=== PATIENT | female | born 1990 | race Caucasian/White ===

== ENCOUNTER 2018-07-03 16:09 | Emergency (ER) | payer MEDICAID, MEDICARE ==
[2018-07-03 16:09] VITALS: BMI 28.3
[2018-07-03 16:41] VITALS: BP 148/85; PULSE 99; RESP 16; TEMP 98.4; O2SAT 100
--- NOTE | 2018-07-03 17:43 | ED PDOC ---
HPI: General Adult Time Seen by Provider: 07/03/18 16:40 Chief Complaint (Nursing): Lower Extremity Problem/Injury Chief Complaint (Provider): Back pain and left knee pain History Per: Patient History/Exam Limitations: no limitations Onset/Duration Of Symptoms: Days Current Symptoms Are (Timing): Still Present Additional Complaint(s): 27 year old female presents to the ED for an evaluation of lower back pain and left knee pain. 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 Since then, patient reports of mild low back and knee pain but she has been ambulatory. She also has a history of left knee injury requiring ligament reconstructive surgery from Dr. Rendon located in [place], [place]. Otherwise, she denies weakness, numbness, head injury or any other complaints. Past Medical History Reviewed: Historical Data, Nursing Documentation, Vital Signs Vital Signs: Last Vital Signs Temp 98.4 F 07/03/18 16:36 Pulse 99 H 07/03/18 16:36 Resp 16 07/03/18 16:36 BP 148/85 07/03/18 16:36 Pulse Ox 100 07/03/18 16:36 - Medical History PMH: Anemia, Bipolar Disorder, Depression, Migraine, Post Traumatic Stress Disorder Denies: Diabetes, Hepatitis, HIV, HTN, Chronic Kidney Disease, Seizures, Sexually Transmitted Disease - Family History Family History: States: Unknown Family Hx - Immunization History Hx Tetanus Toxoid Vaccination: No Hx Influenza Vaccination: No Hx Pneumococcal Vaccination: No - Home Medications Home Medications: Ambulatory Orders Medication Instructions Recorded Amoxicillin 500 mg PO BID #20 tablet 12/22/17 Ondansetron [Zofran] 4 mg PO Q8H PRN #9 tab 12/22/17 Cyclobenzaprine [Cyclobenzaprine 10 mg PO BID #10 tab 07/03/18 HCl] Ibuprofen [Motrin Tab] 600 mg PO TID #15 tab 07/03/18 - Allergies Allergies/Adverse Reactions: Allergies Allergy/AdvReac Type Severity Reaction Status Date / Time peanut Allergy ANAPHYLAXIS Verified 07/03/18 16:36 Review of Systems ROS Statement: Except As Marked, All Systems Reviewed And Found Negative Constitutional: Negative for: Fever Musculoskeletal: Positive for: Back Pain, Other (left knee pain ) Skin: Negative for: Rash Neurological: Negative for: Weakness, Numbness Physical Exam - Reviewed Nursing Documentation Reviewed: Yes Vital Signs Reviewed: Yes - Physical Exam Appears: Positive for: Well, Non-toxic, No Acute Distress Head Exam: Positive for: ATRAUMATIC, NORMAL INSPECTION, NORMOCEPHALIC Skin: Positive for: Normal Color, Warm, Dry. Negative for: Rash Eye Exam: Positive for: Normal appearance Pulses-Dorsalis Pedis (L): 2+ Pulses-Dorsalis Pedis (R): 2+ Back: Positive for: Other (mild paralumbar tenderness) Extremity: Positive for: Normal ROM (full ), Tenderness (mild tenderness over left knee; no ecchymosis). Negative for: Deformity Neurological/Psych: Positive for: Awake, Alert, Normal Tone, Oriented (x3) - Laboratory Results Urine POC: Negative - ECG O2 Sat by Pulse Oximetry: 100 (RA) Pulse Ox Interpretation: Normal - Progress ED Course And Treament: Discussed with patient given she had a fall and lower back pain, recommended lumbar xray and knee xray. Patient states she does not have insurance right now or any funds. She is concerned about the cost and is declining the xrays. Patient advised to rest, ice and elevate her leg and given prescription for Cyclobenzaprine 10mg and Motrin 600mg. Return to ED if symptoms worsen and provided referral to orthopedics Medical Decision Making Medical Decision Making: Upon provider evaluation patient is medically stable, and requires no further treatment in the ED at this time. Patient will be discharged. Counseling was provided and all questions were answered regarding diagnosis and need for follow up with PMD. There is agreement to discharge plan. Return if symptoms persist or worsen. Scribe Attestation: Documented by Paola Mccormack, acting as a scribe for Erin Velez PA-C. Provider Scribe Attestation: All medical record entries made by the Scribe were at my direction and personally dictated by me. I have reviewed the chart and agree that the record accurately reflects my personal performance of the history, physical exam, medical decision making, and the department course for this patient. I have also personally directed, reviewed, and agree with the discharge instructions and disposition. Disposition - Clinical Impression Clinical Impression: Left knee pain, Low back pain, Knee injury, Back pain - Disposition Referrals: Freddie Lomas III, MD [Staff Provider] - Disposition Time: 17:50 Condition: STABLE Prescriptions: Cyclobenzaprine [Cyclobenzaprine HCl] 10 mg PO BID #10 tab Ibuprofen [Motrin Tab] 600 mg PO TID #15 tab Instructions: Low Back Pain (DC), Knee Sprain (DC) Forms: [employer] ([place]e)
== END 2018-07-03 17:34 | disposition home or self-care (01) ==
LOC: H.ER 16:09
DX: M25.562 Pain in left knee (principal); M54.5 Low back pain; S89.92XA Unspecified injury of left lower leg, initial encounter; Z86.59 Personal history of other mental and behavioral disorders; F43.10 Post-traumatic stress disorder, unspecified

== ENCOUNTER 2018-07-17 00:01 | Observation (INO) | payer MEDICAID ==
[2018-07-17 00:01] VITALS: BMI 28.3
[2018-07-17] MEDS ORDERED: Sodium Chloride 0.9% 1,000 ML IV STA (00:33)
--- NOTE | 2018-07-17 00:40 | ED PDOC ---
HPI: Seizure Time Seen by Provider: 07/17/18 00:05 Chief Complaint (Nursing): Seizure Chief Complaint (Provider): Seizure History Per: Other (friend) Recent Seizure Activity Began: Just Before Arrival Number Of Seizures: One Length Of Seizures (Duration): Minutes (1) Quality Of Seizure: Generalized Associated Symptoms: denies: Bit Tongue, Incontinence Of Urine, Incontinence Of Stool, Injury As A Result Of Seizure Activity Post-ictal Period: Yes Additional Complaint(s): 27yo female, with history of depression, brought to ER by EMS for evaluation s/p seizure. Patient accompanied by friend who states they were at the patient's home and talking when the patient suddenly had generalized seizure lasting approximately 1 minute. Per friend, the patient had a post-ictal period lasting until arrival to the ER. Otherwise, no falls or head injury, tongue bite, bowel/bladder incontinence. Patient states she has no diagnosed history of seizures and states this is her first instance. Patient also states she only drinks socially, on the weekends and thinks her last drink might have been 24 hours ago. Per friend, they were together 2 days ago and the patient was "sipping on a nadira." Past Medical History Reviewed: Historical Data, Nursing Documentation, Vital Signs Vital Signs: Last Vital Signs Temp 97.6 F 07/17/18 00:04 Pulse 113 H 07/17/18 00:04 Resp 18 07/17/18 00:04 BP 147/88 07/17/18 00:04 Pulse Ox 99 07/17/18 00:04 Primary Care Provider: Darlene Nassar P - Medical History PMH: Anemia, Bipolar Disorder, Depression, Migraine, Post Traumatic Stress Disorder Denies: Diabetes, Hepatitis, HIV, HTN, Chronic Kidney Disease, Seizures, Sexually Transmitted Disease - Surgical History Surgical History: No Surg Hx - Family History Family History: States: No Known Family Hx, Unknown Family Hx - Social History Current smoker - smoking cessation education provided: No Alcohol: Social (on weekends) Drugs: Denies - Immunization History Hx Tetanus Toxoid Vaccination: No Hx Influenza Vaccination: No Hx Pneumococcal Vaccination: No - Home Medications Home Medications: Ambulatory Orders Medication Instructions Recorded Amoxicillin 500 mg PO BID #20 tablet 12/22/17 Ondansetron [Zofran] 4 mg PO Q8H PRN #9 tab 12/22/17 Cyclobenzaprine [Cyclobenzaprine 10 mg PO BID #10 tab 07/03/18 HCl] Ibuprofen [Motrin Tab] 600 mg PO TID #15 tab 07/03/18 - Allergies Allergies/Adverse Reactions: Allergies Allergy/AdvReac Type Severity Reaction Status Date / Time peanut Allergy ANAPHYLAXIS Verified 07/03/18 16:36 Review of Systems ROS Statement: Except As Marked, All Systems Reviewed And Found Negative ENT: Negative for: Other (tongue bite) Genitourinary Female: Negative for: Incontinence Neurological: Positive for: Seizures Physical Exam - Reviewed Nursing Documentation Reviewed: Yes Vital Signs Reviewed: Yes - Physical Exam Appears: Positive for: Non-toxic Head Exam: Positive for: ATRAUMATIC, NORMAL INSPECTION, NORMOCEPHALIC Skin: Positive for: Normal Color Eye Exam: Positive for: Normal appearance, EOMI, PERRL. Negative for: Nystagmus ENT: Positive for: Normal ENT Inspection. Negative for: Pharyngeal Erythema Neck: Positive for: Normal, Supple Cardiovascular/Chest: Positive for: Regular Rate, Rhythm Respiratory: Positive for: Normal Breath Sounds. Negative for: Respiratory Distress Gastrointestinal/Abdominal: Positive for: Normal Exam, Soft Back: Positive for: Normal Inspection Extremity: Positive for: Normal ROM Neurological/Psych: Positive for: Awake, Normal Tone, Symmetric/Intact Strength (5/5 strength of all extremities), Oriented (x 3), Gait (stable), Cerebellar Tests (normal), printing supervisor II-XII (intact), Other (slow to respond). Negative for: Motor/Sensory Deficits, Facial Droop - Laboratory Results Result Diagrams: 07/17/18 00:50 07/17/18 00:50 - ECG ECG: Positive for: Interpreted By Me, Viewed By Me ECG Rhythm: Positive for: Sinus Rhythm Rate: 96 O2 Sat by Pulse Oximetry: 99 (RA) Pulse Ox Interpretation: Normal Medical Decision Making Medical Decision Making: Impression: Seizure, alcohol withdrawal vs. new onset seizure Plan: -- Labs -- EKG -- CT Head w/o contrast -- IV Fluids 0315 CT Head Findings: Normal size of the ventricles and extra-axial spaces for the patient's age. Normal white matter tracts of the supratentorial brain. Normal basal ganglia and thalami. Normal brainstem. Normal cerebellum. There is no demonstrated extra-axial, intraparenchymal, or intraventricular hemorrhage. There are no findings of an acute ischemic infarction. Normal calvarium. There is no demonstrated fracture. Normal soft tissue structures. Normal visualized paranasal sinuses. IMPRESSION: Normal unenhanced CT scan of the brain. Labs reviewed, patient with mildly elevated sugars Patient with decrease in pulse as well 0331 Patient to be admitted to [facility] due to new onset seizure Discussed with hospitalist, Dr. Meier, who accepts patient. Plan of admission discussed wtih patient, who is agreeable. pt currently awake and aler tin no distress. Care transferred to Dr. Meier at this time. Scribe Attestation: Documented by Helene Booker, acting as a scribe for Zeyad Rivera MD. Provider Scribe Attestation: All medical record entries made by the Scribe were at my direction and personally dictated by me. I have reviewed the chart and agree that the record accurately reflects my personal performance of the history, physical exam, medical decision making, and the department course for this patient. I have also personally directed, reviewed, and agree with the discharge instructions and disposition. Disposition - Clinical Impression Clinical Impression: Witnessed seizure - Patient ED Disposition Is Patient to be Admitted: Yes Counseled Patient/Family Regarding: Studies Performed, Diagnosis - Disposition Disposition Time: 03:00 Condition: STABLE
[2018-07-17 01:00] LABS: BASO % 0.7 % (0.0-2.0); EOS # 0.1 K/uL (0.0-0.7); EOS % 0.8 % (0.0-4.0); LYMPH # 1.2 K/uL (1.0-4.3); LYMPH % 19.7 % (20.0-40.0); MEAN CELL VOLUME 83.7 fl (81.0-99.0); MEAN CORPUSCULAR HEMOGLOBIN 26.7 pg (27.0-31.0); MEAN PLATELET VOLUME 9.6 fl (7.2-11.7); MONO # 0.5 K/uL (0.0-0.8); MONO % 7.8 % (0.0-10.0); NEUT # 4.4 K/uL (1.8-7.0); RBC 4.48 Mil/uL (3.80-5.20); RED CELL DISTRIBUTION WIDTH 14.6 % (11.5-14.5); WHITE BLOOD COUNT 6.2 K/uL (4.8-10.8)
[2018-07-17 01:10] LABS: ALB/GLOB RATIO 1.2 (1.0-2.1); ALBUMIN 4.2 g/dL (3.5-5.0); ALT/SGPT 16 U/L (9-52); AST/SGOT 32 U/L (14-36); BLOOD UREA NITROGEN 14 mg/dl (7-17); CALCIUM 8.6 mg/dL (8.4-10.2); GFR NON-AFRICAN AMERICAN > 60
--- NOTE | 2018-07-17 04:29 | CP.PCM.HP ---
<RuddyMary - Last Filed: 07/17/18 04:35> History of Present Illness - History of Present Illness History of Present Illness: 27 yo female with history of depression was brought via EMS to the ED because of a witnessed seizure. Patient is accompanied by her best friend who is providing most of the history. Friend reports that patient was sitting on the bed and talking with her when all of a sudden she witnessed the patient start shaking (described as generalized body shaking and tensing up). She states that patient had this episode for about a minute and then was very sleepy afterwards. When the seizure occurred the friend called EMS and she states that patient woke up from her post-ictal state when they were brought into the ED. Denies falls, head injury, bowel or bladder incontinence or tongue biting. The patient reports she does not remember anything except for waking up on the stretcher in the ambulance. She reports last alcoholic drink was yesterday- a can of nadira. Patient denies chest pain, headaches, changes in vision, one sided weakness or tingling, dysuria, frequency or urgency. She admits that she lost her mother recently and has been very sad and not sleeping lately. Denies SI/HI. ROS: Negative except for stated above in HPI PMD: None Medical history: Depression Family history: mother with DM Allergies: Peanut butter- throat and tongue swelling Surgery: Gastric sleeve in 2013. Left meniscus repair in 2008. Social: Reports drinking on weekends- yesterday she drank 4 cans of margaritas and states she typically drinks that much on weekends. Darryn smoking history or illicit drug use. ED: Hemodynamically stable -- Labs- CBC, CMP -- EKG -- CT Head w/o contrast: -- IV Fluids Present on Admission - Present on Admission Any Indicators Present on Admission: No History of DVT/PE: No History of Uncontrolled Diabetes: No Urinary Catheter: No Decubitus Ulcer Present: No Review of Systems - EENT Eyes: As Per HPI - Cardiovascular Cardiovascular: As Per HPI - Respiratory Respiratory: As Per HPI - Gastrointestinal Gastrointestinal: As Per HPI - Genitourinary Genitourinary: As Per HPI - Neurological Neurological: absent: Dizziness, Sensory Deficit, Tingling, Tremor, Vertigo - Psychiatric Psychiatric: Depression Past Patient History - Infectious Disease Hx of Infectious Diseases: None - Past Medical History & Family History Past Medical History?: No - Past Social History Alcohol: Social (on weekends) Drugs: Denies - CARDIAC Hx Hypertension: No - PULMONARY Hx Tuberculosis: No - NEUROLOGICAL Hx Migraine: Yes Hx Seizures: No - HEENT Other/Comment: wears glasses - RENAL Hx Chronic Kidney Disease: No - ENDOCRINE/METABOLIC Hx Endocrine Disorders: No - HEMATOLOGICAL/ONCOLOGICAL Hx Anemia: Yes Hx Human Immunodeficiency Virus (HIV): No - INTEGUMENTARY Hx Dermatological Problems: No - MUSCULOSKELETAL/RHEUMATOLOGICAL Other/Comment: chronic left knee pain.multiple L knee surgeries - GASTROINTESTINAL Hx Gastrointestinal Disorders: No - GENITOURINARY/GYNECOLOGICAL Hx Sexually Transmitted Disorders: No - PSYCHIATRIC Hx Bipolar Disorder: Yes Hx Depression: Yes Hx Post Traumatic Stress Disorder: Yes - SURGICAL HISTORY Hx Surgeries: Yes Hx Gastric Bypass Surgery: Yes (gastric sleeve) Other/Comment: left knee surgery (ACL repair) - ANESTHESIA Hx Anesthesia: Yes Hx Anesthesia Reactions: No Meds Allergies/Adverse Reactions: Allergies Allergy/AdvReac Type Severity Reaction Status Date / Time peanut Allergy ANAPHYLAXIS Verified 07/03/18 16:36 Physical Exam - Constitutional Appears: No Acute Distress, Unkempt, Older Than Stated Age, Confused - Head Exam Head Exam: NORMAL INSPECTION - Eye Exam Eye Exam: Normal appearance, PERRL Pupil Exam: NORMAL ACCOMODATION - ENT Exam ENT Exam: Mucous Membranes Moist - Respiratory Exam Respiratory Exam: Clear to Auscultation Bilateral, NORMAL BREATHING PATTERN. absent: Accessory Muscle Use, Chest Wall Tenderness, Decreased Breath Sounds, Prolonged Expiratory Phase, Rales, Rhonchi, Wheezes, Respiratory Distress, Stridor - Cardiovascular Exam Cardiovascular Exam: Tachycardia, +S1, +S2 - GI/Abdominal Exam GI & Abdominal Exam: Normal Bowel Sounds, Soft. absent: Distended, Firm, Guarding, Rebound, Rigid, Tenderness - Extremities Exam Extremities exam: Positive for: normal capillary refill, normal inspection, pedal pulses present. Negative for: calf tenderness, pedal edema, tenderness Additional comments: healed lacerations on bilateral forearms - Back Exam Back exam: NORMAL INSPECTION - Neurological Exam Additional comments: Sleepy. Alert and oriented to herself and place. Not to time. 5/5 strength in all extremities. Sensation intact in all extremities. - Psychiatric Exam Psychiatric exam: Depressed (Feels sad from the loss of her mother; Denies S I/HI), Normal Affect - Skin Skin Exam: Dry, Intact, Normal Color, Warm Results - Vital Signs Recent Vital Signs: Last Vital Signs Temp 97.6 F 07/17/18 00:04 Pulse 96 H 07/17/18 03:38 Resp 18 07/17/18 00:04 BP 147/88 07/17/18 00:04 Pulse Ox 99 07/17/18 03:38 - Labs Result Diagrams: 07/17/18 00:50 07/17/18 00:50 Labs: Laboratory Results - last 24 hr 07/17/18 07/17/18 07/17/18 00:27 00:50 00:50 WBC 6.2 RBC 4.48 Hgb 12.0 Hct 37.5 MCV 83.7 D MCH 26.7 L MCHC 32.0 L RDW 14.6 H Plt Count 249 MPV 9.6 Neut % (Auto) 71.0 Lymph % (Auto) 19.7 L Kane % (Auto) 7.8 Eos % (Auto) 0.8 Baso % (Auto) 0.7 Neut # (Auto) 4.4 Lymph # (Auto) 1.2 Kane # (Auto) 0.5 Eos # (Auto) 0.1 Baso # (Auto) 0.0 Sodium 137 Potassium 3.6 Chloride 100 Carbon Dioxide 25 Anion Gap 16 BUN 14 Creatinine 0.7 Est GFR ( Amer) > 60 Est GFR (Non-Af Amer) > 60 POC Glucose (mg/dL) 161 H Random Glucose 162 H Calcium 8.6 Total Bilirubin 0.4 AST 32 ALT 16 Alkaline Phosphatase 66 Total Protein 7.7 Albumin 4.2 Globulin 3.4 Albumin/Globulin Ratio 1.2 Assessment & Plan (1) Witnessed seizure Status: Acute - Assessment and Plan (Free Text) Assessment: 27 yo female with no pertinent medical history was brought to the ED via EMS because of witness seizure admitted for observation given new onset seizure. Plan: 1. New onset seizure - Admit to telemetry - Electrolytes normal - Hemodynamically stable - Neuro consult appreciated - CT Head Findings: Normal unenhanced CT scan of the brain. - Ativan 2mg prn for breakthrough seizures. - NPO at this time - IVF @ maintenance - F/U Drug screen and alcohol in serum 2. DVT prophylaxis - SCD - early ambulation 3. Full code <Thad Meier - Last Filed: 07/17/18 06:46> Results - Vital Signs Recent Vital Signs: Last Vital Signs Temp 98.0 F 07/17/18 06:22 Pulse 94 H 07/17/18 06:22 Resp 18 07/17/18 06:22 BP 135/81 07/17/18 06:22 Pulse Ox 100 07/17/18 06:20 - Labs Result Diagrams: 07/17/18 00:50 07/17/18 00:50 Labs: Laboratory Results - last 24 hr 07/17/18 07/17/18 07/17/18 00:27 00:50 00:50 WBC 6.2 RBC 4.48 Hgb 12.0 Hct 37.5 MCV 83.7 D MCH 26.7 L MCHC 32.0 L RDW 14.6 H Plt Count 249 MPV 9.6 Neut % (Auto) 71.0 Lymph % (Auto) 19.7 L Kane % (Auto) 7.8 Eos % (Auto) 0.8 Baso % (Auto) 0.7 Neut # (Auto) 4.4 Lymph # (Auto) 1.2 Kane # (Auto) 0.5 Eos # (Auto) 0.1 Baso # (Auto) 0.0 Sodium 137 Potassium 3.6 Chloride 100 Carbon Dioxide 25 Anion Gap 16 BUN 14 Creatinine 0.7 Est GFR ( Amer) > 60 Est GFR (Non-Af Amer) > 60 POC Glucose (mg/dL) 161 H Random Glucose 162 H Calcium 8.6 Total Bilirubin 0.4 AST 32 ALT 16 Alkaline Phosphatase 66 Total Protein 7.7 Albumin 4.2 Globulin 3.4 Albumin/Globulin Ratio 1.2 Alcohol, Quantitative 07/17/18 05:59 WBC RBC Hgb Hct MCV MCH MCHC RDW Plt Count MPV Neut % (Auto) Lymph % (Auto) Kane % (Auto) Eos % (Auto) Baso % (Auto) Neut # (Auto) Lymph # (Auto) Kane # (Auto) Eos # (Auto) Baso # (Auto) Sodium Potassium Chloride Carbon Dioxide Anion Gap BUN Creatinine Est GFR ( Amer) Est GFR (Non-Af Amer) POC Glucose (mg/dL) Random Glucose Calcium Total Bilirubin AST ALT Alkaline Phosphatase Total Protein Albumin Globulin Albumin/Globulin Ratio Alcohol, Quantitative < 10 Assessment & Plan - Assessment and Plan (Free Text) Plan: History as documented by resident was reviewed with patient and resident. I performed the harris elements of exam and agree with the above findings. Diagnostics were reviewed and medical decision making and plan of care performed by me. 27 yo AAF with no significant PMH except for Depression (lost her mother recently) p/w episode of GTC seizure witnessed by her friend. It lasted about a min following which patient was confused. No urinary or bowel incontinence or tongue bite. Never had similar episode in the past. On exam neurologically intact but somewhat slow. Lungs clear b/l. Blood work unremarkable and CT head negative. Will observe under tele monitoring with seizure precautions, neurology consult.
[2018-07-17 08:09] VITALS: RESP 18
--- NOTE | 2018-07-17 11:12 | CP.PCM.CON ---
History of Present Illness - History of Present Illness History of Present Illness: Psychiatry consult note CC: "My mom ." HPI: 27 yo female w/ h/o bipolar disorder, admitted for seizure, reports h/o chronic depression, and reports that she is currently grieving the loss of her mother. She reports that she has had passive wishes that she were not alive, but denies active suicidal ideation/plan/intent. She is able to contract for safety. She reports that she has not taken her Seroquel for 1 month because she lost her insurance and can not afford the medication. She denies acute AH/VH/SI/HI. She does not want acute psychiatric admission and states that she wants to continue living for herself and her family. 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 A + O x 4. PPHx: H/o Bipolar Disorder, not compliant with Seroquel due to loss of insurance. History of >5 past psychiatric admission; h/o suicide attempt by OD 1 year ago. PMed/Surg Hx: h/o Gastric sleeve in 2013 and Left meniscus repair ALL: Peanuts FHx: mother w/ h/o depression SHx: Lives w/ brother; drinks etoh intermittently; denies drug/cig use MSE: A + O x 4, calm, cooperative, no acute distress, mood- depressed, affect- full range/broad; thought process- linear/coherent, thought content- no delusions, no AH//SI/HI; good I/J Impression: 27 yo old female w/ h/o bipolar disorder, currently grieving the loss of her mother. She is able to contract for safety and family confirmed that she is not an acute danger to self. Patient does not want psychiatric admission at this time. -Start Seroquel 100 mg PO HS -Patient is psychiatrically clear for discharge -No 1:1 indicated -Recommend outpatient referral to the [place] psychiatric clinic Past Patient History - Infectious Disease Hx of Infectious Diseases: None - Past Medical History & Family History Past Medical History?: No - Past Social History Alcohol: Social (on weekends) Drugs: Denies - CARDIAC Hx Hypertension: No - PULMONARY Hx Tuberculosis: No - NEUROLOGICAL Hx Migraine: Yes Hx Seizures: No - HEENT Other/Comment: wears glasses - RENAL Hx Chronic Kidney Disease: No - ENDOCRINE/METABOLIC Hx Endocrine Disorders: No - HEMATOLOGICAL/ONCOLOGICAL Hx Anemia: Yes Hx Human Immunodeficiency Virus (HIV): No - INTEGUMENTARY Hx Dermatological Problems: No - MUSCULOSKELETAL/RHEUMATOLOGICAL Other/Comment: chronic left knee pain.multiple L knee surgeries - GASTROINTESTINAL Hx Gastrointestinal Disorders: No - GENITOURINARY/GYNECOLOGICAL Hx Sexually Transmitted Disorders: No - PSYCHIATRIC Hx Bipolar Disorder: Yes Hx Depression: Yes Hx Post Traumatic Stress Disorder: Yes - SURGICAL HISTORY Hx Surgeries: Yes Hx Gastric Bypass Surgery: Yes (gastric sleeve) Other/Comment: left knee surgery (ACL repair) - ANESTHESIA Hx Anesthesia: Yes Hx Anesthesia Reactions: No Meds Allergies/Adverse Reactions: Allergies Allergy/AdvReac Type Severity Reaction Status Date / Time peanut Allergy ANAPHYLAXIS Verified 07/03/18 16:36 - Medications Medications: Current Medications Sodium Chloride (Sodium Chloride 0.9%) 1,000 mls @ 100 mls/hr IV .Q10H KANE Lorazepam (Ativan) 2 mg IVP Q6 PRN PRN Reason: Seizure activity Results - Vital Signs Recent Vital Signs: Last Vital Signs Temp 97.5 F L 07/17/18 08:08 Pulse 83 07/17/18 08:08 Resp 18 07/17/18 08:08 BP 126/87 07/17/18 08:08 Pulse Ox 100 07/17/18 08:08 - Labs Result Diagrams: 07/17/18 00:50 07/17/18 00:50 Labs: Laboratory Results - last 24 hr 07/17/18 07/17/18 07/17/18 00:27 00:50 00:50 WBC 6.2 RBC 4.48 Hgb 12.0 Hct 37.5 MCV 83.7 D MCH 26.7 L MCHC 32.0 L RDW 14.6 H Plt Count 249 MPV 9.6 Neut % (Auto) 71.0 Lymph % (Auto) 19.7 L [place] % (Auto) 7.8 Eos % (Auto) 0.8 Baso % (Auto) 0.7 Neut # (Auto) 4.4 Lymph # (Auto) 1.2 [place] # (Auto) 0.5 Eos # (Auto) 0.1 Baso # (Auto) 0.0 Sodium 137 Potassium 3.6 Chloride 100 Carbon Dioxide 25 Anion Gap 16 BUN 14 Creatinine 0.7 Est GFR ( Amer) > 60 Est GFR (Non-Af Amer) > 60 POC Glucose (mg/dL) 161 H Random Glucose 162 H Calcium 8.6 Total Bilirubin 0.4 AST 32 ALT 16 Alkaline Phosphatase 66 Total Protein 7.7 Albumin 4.2 Globulin 3.4 Albumin/Globulin Ratio 1.2 Alcohol, Quantitative 07/17/18 05:59 WBC RBC Hgb Hct MCV MCH MCHC RDW Plt Count MPV Neut % (Auto) Lymph % (Auto) [place] % (Auto) Eos % (Auto) Baso % (Auto) Neut # (Auto) Lymph # (Auto) [place] # (Auto) Eos # (Auto) Baso # (Auto) Sodium Potassium Chloride Carbon Dioxide Anion Gap BUN Creatinine Est GFR ( Amer) Est GFR (Non-Af Amer) POC Glucose (mg/dL) Random Glucose Calcium Total Bilirubin AST ALT Alkaline Phosphatase Total Protein Albumin Globulin Albumin/Globulin Ratio Alcohol, Quantitative < 10
--- NOTE | 2018-07-17 11:36 | CP.PCM.CON ---
History of Present Illness - History of Present Illness History of Present Illness: Neurology Consultation Consultation Requested by Dr. Rivera Ms. Moore is a 27 y/o female with a PMHx of Anemia, Bipolar Disorder, Depression, Migraine, Post Traumatic Stress Disorder who is admitted to [facility] for a new onset seizure. The pt does not recall the specific events preceding her visit to the ED yesterday. The friend present during this episode is at the bedside now. She states to me that the pt began have generalized shaking, did not respond to her friend, and woke up shortly after confused and lethargic. This episode lasted approx 1 minute, however, even when the pt was in the ED she was confused. Per the friend, the pt did not seem to come back to her baseline until about 4pm yesterday. Pt did not bite tongue, have lose of bladder/bowel function, or hit head. Pt denies a history and family of seizure. The pt admits to feeling in a "fog" for several days and admits that she has been depressed and stressed, not eating well, not sleeping. 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 Non- contrast CT Head was done in the ED and was unremarkable. The pt also states to me that she stopped her medications for bipolar 1 month ago on her own (she was supposed to take Seroquel 300 mg PO HS and Gabapentin, cannot recall dose/frequency). Today when I saw the pt, she was awake, alert, follows commands well, but stills feels "in a fog." She seems depressed. She has some dizziness. Otherwise she denies h/a, visual changes, chest pain, palpitations, sob, cough, dysuria, abd pain, n/v/d, paresthesias, fever/chills, recent travel. We have been consulted to assist in the management of this pt. Review of Systems - Constitutional Constitutional: As Per HPI - EENT Eyes: As Per HPI Ears: As Per HPI Nose/Mouth/Throat: As Per HPI - Breasts Breasts: As Per HPI - Cardiovascular Cardiovascular: As Per HPI - Respiratory Respiratory: As Per HPI - Gastrointestinal Gastrointestinal: As Per HPI - Genitourinary Genitourinary: As Per HPI - Reproductive: Female Reproductive:Female: As Per HPI - Menstruation Menstruation: As Per HPI - Musculoskeletal Musculoskeletal: As Per HPI - Integumentary Integumentary: As Per HPI - Neurological Neurological: As Per HPI - Psychiatric Psychiatric: As Per HPI - Endocrine Endocrine: As Per HPI - Hematologic/Lymphatic Hematologic: As Per HPI Past Patient History - Infectious Disease Hx of Infectious Diseases: None - Tetanus Immunizations Tetanus Immunization: Unknown - Past Medical History & Family History Past Medical History?: No Past Family History: Reviewed and not pertinent (FHx HTN and DM) - Past Social History Occupation: unemployed Alcohol: Social (on weekends) Drugs: Denies Home Situation {Lives}: With Family Domestic Violence: Negative - CARDIAC Hx Cardiac Disorders: No Hx Hypertension: No - PULMONARY Hx Respiratory Disorders: No Hx Tuberculosis: No - NEUROLOGICAL Hx Neurological Disorder: Yes Hx Migraine: Yes Hx Seizures: No - HEENT Hx HEENT Problems: Yes Other/Comment: wears glasses - RENAL Hx Chronic Kidney Disease: No - ENDOCRINE/METABOLIC Hx Endocrine Disorders: No - HEMATOLOGICAL/ONCOLOGICAL Hx Blood Disorders: Yes Hx Anemia: Yes Hx Human Immunodeficiency Virus (HIV): No - INTEGUMENTARY Hx Dermatological Problems: No - MUSCULOSKELETAL/RHEUMATOLOGICAL Hx Musculoskeletal Disorders: Yes Other/Comment: chronic left knee pain.multiple L knee surgeries - GASTROINTESTINAL Hx Gastrointestinal Disorders: No - GENITOURINARY/GYNECOLOGICAL Hx Genitourinary Disorders: No Hx Sexually Transmitted Disorders: No - PSYCHIATRIC Hx Psychophysiologic Disorder: Yes Hx Bipolar Disorder: Yes Hx Depression: Yes Hx Post Traumatic Stress Disorder: Yes - SURGICAL HISTORY Hx Surgeries: Yes Hx Gastric Bypass Surgery: Yes (gastric sleeve) Other/Comment: left knee surgery (ACL repair) - ANESTHESIA Hx Anesthesia: Yes Hx Anesthesia Reactions: No Meds Allergies/Adverse Reactions: Allergies Allergy/AdvReac Type Severity Reaction Status Date / Time peanut Allergy ANAPHYLAXIS Verified 07/03/18 16:36 - Medications Medications: Current Medications Sodium Chloride (Sodium Chloride 0.9%) 1,000 mls @ 100 mls/hr IV .Q10H KANE Lorazepam (Ativan) 2 mg IVP Q6 PRN PRN Reason: Seizure activity Physical Exam - Constitutional Appears: Well, Non-toxic, No Acute Distress - Head Exam Head Exam: ATRAUMATIC, NORMAL INSPECTION, NORMOCEPHALIC - Eye Exam Eye Exam: EOMI, Normal appearance, PERRL. absent: Nystagmus Pupil Exam: NORMAL ACCOMODATION, PERRL - ENT Exam ENT Exam: Mucous Membranes Moist, Normal Exam - Neck Exam Neck exam: Positive for: Full Rom, Normal Inspection - Respiratory Exam Respiratory Exam: NORMAL BREATHING PATTERN. absent: Respiratory Distress - GI/Abdominal Exam GI & Abdominal Exam: Soft. absent: Distended, Tenderness - Extremities Exam Extremities exam: Positive for: full ROM, normal inspection. Negative for: calf tenderness, pedal edema - Back Exam Back exam: FULL ROM, NORMAL INSPECTION - Neurological Exam Neurological exam: Alert, CN II-XII Intact, Oriented x3, Reflexes Normal Additional comments: AAOx3; able to follow commands and answer my questions. Speech clear, fluid FROM to all extremities No tremors or abnormal movements noted No sensory deficits Gait not assessed 2/2 dizziness - Psychiatric Exam Psychiatric exam: Depressed - Skin Skin Exam: Dry, Intact, Normal Color Results - Vital Signs Recent Vital Signs: Last Vital Signs Temp 97.5 F L 07/17/18 08:08 Pulse 83 07/17/18 08:08 Resp 18 07/17/18 08:08 BP 126/87 07/17/18 08:08 Pulse Ox 100 07/17/18 08:08 - Labs Result Diagrams: 07/17/18 00:50 07/17/18 00:50 Labs: Laboratory Results - last 24 hr 07/17/18 07/17/18 07/17/18 00:27 00:50 00:50 WBC 6.2 RBC 4.48 Hgb 12.0 Hct 37.5 MCV 83.7 D MCH 26.7 L MCHC 32.0 L RDW 14.6 H Plt Count 249 MPV 9.6 Neut % (Auto) 71.0 Lymph % (Auto) 19.7 L Power % (Auto) 7.8 Eos % (Auto) 0.8 Baso % (Auto) 0.7 Neut # (Auto) 4.4 Lymph # (Auto) 1.2 Power # (Auto) 0.5 Eos # (Auto) 0.1 Baso # (Auto) 0.0 Sodium 137 Potassium 3.6 Chloride 100 Carbon Dioxide 25 Anion Gap 16 BUN 14 Creatinine 0.7 Est GFR ( Amer) > 60 Est GFR (Non-Af Amer) > 60 POC Glucose (mg/dL) 161 H Random Glucose 162 H Calcium 8.6 Total Bilirubin 0.4 AST 32 ALT 16 Alkaline Phosphatase 66 Total Protein 7.7 Albumin 4.2 Globulin 3.4 Albumin/Globulin Ratio 1.2 Alcohol, Quantitative 07/17/18 05:59 WBC RBC Hgb Hct MCV MCH MCHC RDW Plt Count MPV Neut % (Auto) Lymph % (Auto) Power % (Auto) Eos % (Auto) Baso % (Auto) Neut # (Auto) Lymph # (Auto) Power # (Auto) Eos # (Auto) Baso # (Auto) Sodium Potassium Chloride Carbon Dioxide Anion Gap BUN Creatinine Est GFR ( Amer) Est GFR (Non-Af Amer) POC Glucose (mg/dL) Random Glucose Calcium Total Bilirubin AST ALT Alkaline Phosphatase Total Protein Albumin Globulin Albumin/Globulin Ratio Alcohol, Quantitative < 10 Assessment & Plan (1) New onset seizure Assessment and Plan: Imaging reviewed: -CT Head (07/17/18): normal unenhanced CT of the head. -EEG ordered--will f/u with results. -MRI Brain without contrast ordered--will f/u with results. -Seizure precautions. -For management if psychiatric issues, it is recommended to not start pt on psych meds that may lower the seizure threshold such as Wellbutrin. She is on Seroquel which can lower the seizure threshold. We will, however, resume the pt's Gabapentin at 300 mg PO TID. This will also provide anti-seizure coverage. No other AE recommended at this time unless further indicated. -Notify neuro team of any seizure activity or changes in pt's condition. Fallon Herman DNP, CONSTRUCTION PERSON d/w Dr. Guzmán Status: Acute - Date & Time Date: 07/17/18 Time: 13:06
--- NOTE | 2018-07-17 11:45 | CT ---
Date of service: 07/17/2018 PROCEDURE: CT HEAD WITHOUT CONTRAST. HISTORY: headache COMPARISON: None available. TECHNIQUE: Axial computed tomography images were obtained through the head/brain without intravenous contrast. Radiation dose: Total exam DLP = 1118.51 mGy-cm. This CT exam was performed using one or more of the following dose reduction techniques: Automated exposure control, adjustment of the mA and/or kV according to patient size, and/or use of iterative reconstruction technique. FINDINGS: HEMORRHAGE: No intracranial hemorrhage. BRAIN: Normal hammond-white matter differentiation and density are appreciated throughout the cerebrum and cerebellum with the brainstem appearing unremarkable as well. There is no mass effect. There is no suspicious extra-axial fluid collection and the midline brain anatomy appears diffusely unremarkable. VENTRICLES: Unremarkable. No hydrocephalus. CALVARIUM: No destructive bony lesion or displaced fracture identified including through the skullbase. PARANASAL SINUSES: Unremarkable as visualized. No significant inflammatory changes. MASTOID AIR CELLS: Unremarkable as visualized. No inflammatory changes. OTHER FINDINGS: None. IMPRESSION: Unremarkable unenhanced head CT. Concordant preliminary report from [place], 07/17/2018, 3:14 a.m..
[2018-07-17] MEDS: Sodium Chloride 0.9% 1,000 ML IV SCH ×2 (13:13→15:42)
[2018-07-17 16:29] LABS: OPIATES, UR NEGATIVE (NEGATIVE); PHENCYCLIDINE, UR NEGATIVE (NEGATIVE)
[2018-07-17 16:39] LABS: BARBITURATES, UR NEGATIVE (NEGATIVE); BENZODIAZEPINES, UR NEGATIVE (NEGATIVE)
[2018-07-17 20:14] VITALS: BP 120/80; PULSE 82; TEMP 98.5; O2SAT 100
--- NOTE | 2018-07-17 21:26 | CP.PCM.DIS ---
Provider - Provider Date of Admission: 07/17/18 03:36 Attending physician: Thad Meier MD Primary care physician: Darlene Nassar MD Consults: 07/17/18 03:49 Neurology Consult Stat Comment: Consulting Provider: Tanvir Sterling Consulting Physician: Tanvir Sterling Reason for Consult: first time seizure 07/17/18 10:53 Psychiatry Consult Routine Comment: Consulting Provider: Kylie Nascimento Consulting Physician: Kylie Nascimento Reason for Consult: depressed 07/17/18 12:44 Social Work Referral Routine Comment: no insurance Physician Instructions: Reason For Exam: outpatient psych clinic referral Time Spent in preparation of Discharge (in minutes): 30 Diagnosis - Discharge Diagnosis (1) Grief Status: Acute (2) New onset seizure Status: Acute (3) Witnessed seizure Status: Acute Hospital Course - Lab Results Lab Results: Most Recent Lab Values WBC 6.2 K/uL (4.8-10.8) 07/17/18 00:50 RBC 4.48 Mil/uL (3.80-5.20) 07/17/18 00:50 Hgb 12.0 g/dL (12.0-16.0) 07/17/18 00:50 Hct 37.5 % (34.0-47.0) 07/17/18 00:50 MCV 83.7 fl (81.0-99.0) D 07/17/18 00:50 MCH 26.7 pg (27.0-31.0) L 07/17/18 00:50 MCHC 32.0 g/dL (33.0-37.0) L 07/17/18 00:50 RDW 14.6 % (11.5-14.5) H 07/17/18 00:50 Plt Count 249 K/uL (130-400) 07/17/18 00:50 MPV 9.6 fl (7.2-11.7) 07/17/18 00:50 Neut % (Auto) 71.0 % (50.0-75.0) 07/17/18 00:50 Lymph % (Auto) 19.7 % (20.0-40.0) L 07/17/18 00:50 [place] % (Auto) 7.8 % (0.0-10.0) 07/17/18 00:50 Eos % (Auto) 0.8 % (0.0-4.0) 07/17/18 00:50 Baso % (Auto) 0.7 % (0.0-2.0) 07/17/18 00:50 Neut # (Auto) 4.4 K/uL (1.8-7.0) 07/17/18 00:50 Lymph # (Auto) 1.2 K/uL (1.0-4.3) 07/17/18 00:50 [place] # (Auto) 0.5 K/uL (0.0-0.8) 07/17/18 00:50 Eos # (Auto) 0.1 K/uL (0.0-0.7) 07/17/18 00:50 Baso # (Auto) 0.0 K/uL (0.0-0.2) 07/17/18 00:50 Sodium 137 mmol/l (132-148) 07/17/18 00:50 Potassium 3.6 MMOL/L (3.6-5.0) 07/17/18 00:50 Chloride 100 mmol/L (98-107) 07/17/18 00:50 Carbon Dioxide 25 mmol/L (22-30) 07/17/18 00:50 Anion Gap 16 (10-20) 07/17/18 00:50 BUN 14 mg/dl (7-17) 07/17/18 00:50 Creatinine 0.7 mg/dl (0.7-1.2) 07/17/18 00:50 Est GFR ( Amer) > 60 07/17/18 00:50 Est GFR (Non-Af Amer) > 60 07/17/18 00:50 POC Glucose (mg/dL) 161 mg/dL (65-110) H 07/17/18 00:27 Random Glucose 162 mg/dL (65-105) H 07/17/18 00:50 Calcium 8.6 mg/dL (8.4-10.2) 07/17/18 00:50 Total Bilirubin 0.4 mg/dl (0.2-1.3) 07/17/18 00:50 AST 32 U/L (14-36) 07/17/18 00:50 ALT 16 U/L (9-52) 07/17/18 00:50 Alkaline Phosphatase 66 U/L (38-126) 07/17/18 00:50 Total Protein 7.7 G/DL (6.3-8.2) 07/17/18 00:50 Albumin 4.2 g/dL (3.5-5.0) 07/17/18 00:50 Globulin 3.4 gm/dL (2.2-3.9) 07/17/18 00:50 Albumin/Globulin Ratio 1.2 (1.0-2.1) 07/17/18 00:50 Urine Opiates Screen Negative (NEGATIVE) 07/17/18 16:06 Urine Methadone Screen Negative (NEGATIVE) 07/17/18 16:06 Ur Barbiturates Screen Negative (NEGATIVE) 07/17/18 16:06 Ur Phencyclidine Scrn Negative (NEGATIVE) 07/17/18 16:06 Ur Amphetamines Screen Negative (NEGATIVE) 07/17/18 16:06 U Benzodiazepines Scrn Negative (NEGATIVE) 07/17/18 16:06 U Oth Cocaine Metabols Negative (NEGATIVE) 07/17/18 16:06 U Cannabinoids Screen Negative (NEGATIVE) 07/17/18 16:06 Alcohol, Quantitative < 10 mg/dl (0-10) 07/17/18 05:59 - Hospital Course Hospital Course: CT HEAD: Unremarkable unenhanced head CT. MRI BRAIN: Two abnormal lesions in the right parietal sucortical white matter. The foci are nonspecific, however, early demyelinating disease, vasculitis or migraine headacehs may have this presentation. clinical correlation and follow up in 6 months is recommended 27 yo female with pmhx of depression, bipolar disorder and anxiety with panic attacks was admitted for new onset seizure. - Electrolytes WNL; hemodynamically stable - Neuro consult: Dr. Guzmán: EEG complete, to be followed up outpatient; MRI brain. Recommend not continuing meds that may lower seizure threshold: seroquel, wellbutrin. May continue with gabapentin 300 mg TID. No other anti epileptic recommended at this time. - Psych: Dr. Nascimento: Pt psychiatrically clear for disharge; to f/u outpatient. Ok to discharge home with best friend. Pt AAOx3; Denies current depression, SI/HI, focal deficits, twitching, or seizure-like activity similar to ones experienced prior to admission Pt was extensively educated: NOT to drive, operate heavy machinery, bathe in deep water, swim, or other activities that would put her in grave danger, should she experience another seizure. Pt to follow up with neurology, who will discuss EEG results and clear for activities described above. MRI brain reviewed. Pt encouraged to follow up in 6 months. Pt to make an appointment in the [facility] within 3-5 days along with follow up with mental health specialists. Strict ER precautions reviewed with patient and friend present. Pt discussed reasoning for discontinuing serquel and resuming gabapentin as ordered Case and plan d/w Dr. Zechariah Torres MD PGY-2 Discharge Exam - Head Exam Head Exam: ATRAUMATIC, NORMAL INSPECTION, NORMOCEPHALIC Discharge Plan - Discharge Medications Prescriptions: Gabapentin [Neurontin] 300 mg PO TID #90 cap - Follow Up Plan Condition: STABLE Disposition: HOME/ ROUTINE Instructions: Seizures, Adult (DC), Dealing With , Adult, When Your Parent Dies Additional Instructions: Greetings, Ok to discharge home with best friend. Pt AAOx3; Denies current depression, SI/HI, focal deficits, twitching, or seizure-like activity experienced prior to admission Pt was extensively educated: NOT to drive, operate heavy machinery, bathe in deep water, swim, or other activities that would put her in grave danger, should she experience another seizure. Pt to follow up with neurology, who will discuss EEG results and clear for activities described above. MRI brain reviewed. Pt encouraged to follow up in 6 months. Pt to make an appointment in the [facility] within 3-5 days along with follow up with mental health specialists. Strict ER precautions reviewed with patient and friend present. Pt discussed reasoning for discontinuing serquel and resuming gabapentin as ordered Thank you for the opportunity to be a part of your care! Case and plan d/w Dr. Zechariah Torres MD PGY-2 Referrals: Darlene Nassar MD [Primary Care Provider] -
--- NOTE | 2018-07-18 15:36 | MRI ---
Date of service: 07/17/2018 PROCEDURE: MRI BRAIN WITHOUT CONTRAST HISTORY: new onset seizure COMPARISON: None available. TECHNIQUE: Multiplanar, multisequence MR images of the brain were obtained without intravenous contrast enhancement. FINDINGS: HEMORRHAGE: None DWI: No evidence of an acute or early subacute infarction. BRAIN PARENCHYMA: There is a small area of linear hyper intense long TR change at the right parietal optic radiations boarding the centrum semiovale. This is the only signal abnormality identified in the supra and infratentorial brain parenchyma, including the brainstem. This is a nonspecific finding. Follow-up MRI with contrast for added characterization. Otherwise, no mass-effect is identified with good corticomedullary differentiation appreciated throughout. No suspicious extra-axial collection identified. Corpus callosum and remaining midline brain anatomy appear within normal limits. VENTRICLES: Unremarkable. No hydrocephalus. CRANIUM: Unremarkable. ORBITS: Grossly unremarkable. PARANASAL SINUSES/MASTOIDS: Clear VASCULAR SYSTEM: Skull base flow voids intact. OTHER FINDINGS: None. IMPRESSION: Nonspecific linear hyperintense long TR signal abnormality at the right parietal optic radiations of uncertain origin. Remaining white matter is normal including the corpus callosum. Follow-up brain MRI with contrast is advised for added characterization.
== END 2018-07-17 22:20 | disposition home or self-care (01) ==
LOC: H.ER 00:01 → H.ERHOLD 03:36 → H.TEL 06:55
PROVIDERS: ADMIT Internal Medicine; ATTEND Internal Medicine
DX: R56.9 Unspecified convulsions (principal); Z79.899 Other long term (current) drug therapy; Z81.8 Family history of other mental and behavioral disorders; Z83.3 Family history of diabetes mellitus; Z98.84 Bariatric surgery status; D64.9 Anemia, unspecified; F41.0 Panic disorder [episodic paroxysmal anxiety]; F41.9 Anxiety disorder, unspecified; G89.29 Other chronic pain; M25.562 Pain in left knee; F31.9 Bipolar disorder, unspecified; F43.10 Post-traumatic stress disorder, unspecified; G37.9 Demyelinating disease of central nervous system, unspecified; G43.909 Migraine, unspecified, not intractable, without status migrainosus; I77.6 Arteritis, unspecified; R45.851 Suicidal ideations
CPT/HCPCS: 70450; 70551; 80053; 81025; 82948; 85025; 95812; 96360; 99285; G0378; G0480; J7030

== ENCOUNTER 2018-07-23 11:26 | Emergency (ER) | payer MEDICAID ==
[2018-07-23 11:32] VITALS: BMI 26.6
--- NOTE | 2018-07-23 12:23 | ED PDOC ---
Syncope/Near Syncope/Dizziness Time Seen by Provider: 07/23/18 11:43 Chief Complaint (Nursing): Seizure Chief Complaint (Provider): syncope History Per: Patient History/Exam Limitations: no limitations Onset/Duration Of Symptoms: Sudden Onset Current Symptoms Are (Timing): Better Additional Complaint(s): 27 year old female arrives to the emergency department via EMS for an evaluation of unwitnessed syncopal episode. Patient states that she, lastly, remembers sitting in her house then suddenly was lying on the kitchen floor. She immediate sat up but had room spinning sensation so she returned to the floor then called 911. Patient reports similar episodes in the past with last admission on 07/16/18. She was recommended to follow up with neurology and has been compliant with Gabapentin that was prescribed upon discharge. Additionally, patient reports feeling depressed following the of her mother 2 weeks ago, however, denies any suicidal or homicidal ideation. Otherwise, she denies any tongue-biting, headache, head injury, or incontinence. Past Medical History Reviewed: Historical Data, Nursing Documentation, Vital Signs Vital Signs: Last Vital Signs Temp 98.6 F 07/23/18 11:30 Pulse 109 H 07/23/18 11:30 Resp BP 131/88 07/23/18 11:30 Pulse Ox 100 07/23/18 11:30 Primary Care Provider: Non [facility] Provider, - Medical History PMH: Anemia, Bipolar Disorder, Depression, Migraine, Post Traumatic Stress Disorder Denies: Diabetes, Hepatitis, HIV, HTN, Chronic Kidney Disease, Seizures, Sexually Transmitted Disease - Family History Family History: States: Unknown Family Hx - Immunization History Hx Tetanus Toxoid Vaccination: No Hx Influenza Vaccination: No Hx Pneumococcal Vaccination: No - Home Medications Home Medications: Ambulatory Orders Medication Instructions Recorded Gabapentin [Neurontin] 300 mg PO TID #90 cap 07/17/18 Valproic Acid [Depakene] 500 mg PO BID #40 capsule 07/23/18 - Allergies Allergies/Adverse Reactions: Allergies Allergy/AdvReac Type Severity Reaction Status Date / Time peanut Allergy ANAPHYLAXIS Verified 07/03/18 16:36 Review of Systems ROS Statement: Except As Marked, All Systems Reviewed And Found Negative ENT: Negative for: Mouth Pain (tongue biting) Genitourinary Female: Negative for: Incontinence Neurological: Positive for: Dizziness, Other (LOC). Negative for: Headache (or head injury) Psych: Positive for: Depression. Negative for: Suicidal ideation (or homicidal ideation) Physical Exam - Reviewed Nursing Documentation Reviewed: Yes Vital Signs Reviewed: Yes - Physical Exam Appears: Positive for: Well, Non-toxic, No Acute Distress Head Exam: Positive for: ATRAUMATIC, NORMAL INSPECTION, NORMOCEPHALIC Skin: Positive for: Normal Color Eye Exam: Positive for: Normal appearance, EOMI, PERRL ENT: Positive for: Normal ENT Inspection Neck: Positive for: Normal, Painless ROM, Supple Cardiovascular/Chest: Positive for: Regular Rate, Rhythm. Negative for: Murmur Respiratory: Positive for: Normal Breath Sounds. Negative for: Respiratory Dist ress Pulses-Radial (L): 2+ Pulses-Radial (R): 2+ Gastrointestinal/Abdominal: Positive for: Normal Exam, Soft. Negative for: Tenderness Back: Positive for: Normal Inspection Extremity: Positive for: Normal ROM (upper/lower) Neurological/Psych: Positive for: Awake, Alert, Normal Tone, Symmetric/Intact Strength (5/5), Oriented (x3), insurance verification representative II-XII (grossly intact). Negative for: Motor/Sensory Deficits - Laboratory Results Result Diagrams: 07/23/18 12:30 07/23/18 12:30 - ECG O2 Sat by Pulse Oximetry: 100 (RA) Pulse Ox Interpretation: Normal Medical Decision Making Medical Decision Making: Time: 1212 Initial Plan: * EKG * Labs * Accucheck Time: 1258 --EKG: NSR at 92 BMP. (-) ST segment changes. --Accucheck: 92 mg/dL. Time: 1430 --Case discussed with Dr. Guzmán who recommends adding secondary medicine, Depacon: 1gm in ED then discharge home with Rx for 500mg BID. Time: 1515 --Findings and plan discussed with patient. Suddenly becomes tearful and agrees to crisis evaluation. Scribe Attestation: Documented by Michelle Mackenzie, acting as a scribe for Magalis Gilbert MD. Provider Scribe Attestation: All medical record entries made by the Scribe were at my direction and person ally dictated by me. I have reviewed the chart and agree that the record accurately reflects my personal performance of the history, physical exam, medical decision making, and the department course for this patient. I have also personally directed, reviewed, and agree with the discharge instructions and disposition. Disposition - Clinical Impression Clinical Impression: Seizure disorder, Depression - Disposition Referrals: Tanvir Sterling MD [Medical Doctor] - [facility] [Outside] Disposition: Hospice - Home Disposition Time: 17:10 Condition: IMPROVED Prescriptions: Valproic Acid [Depakene] 500 mg PO BID #40 capsule Instructions: Seizures, Adult (DC), Depression Forms: [employer] (Niuean)
[2018-07-23 13:01] LABS: BASO % 0.4 % (0.0-2.0); EOS % 0.4 % (0.0-4.0); HEMOGLOBIN 11.3 g/dL (12.0-16.0); LYMPH % 16.6 % (20.0-40.0); MEAN CORPUSCULAR HEMOGLOBIN 26.7 pg (27.0-31.0); MEAN CORPUSCULAR HGB CONC 32.5 g/dL (33.0-37.0); MEAN PLATELET VOLUME 10.2 fl (7.2-11.7); MONO # 0.6 K/uL (0.0-0.8); NEUT # 4.5 K/uL (1.8-7.0); NEUT % 73.6 % (50.0-75.0); NRBC % 0.1 % (0.0-0.0); RBC 4.22 Mil/uL (3.80-5.20); RED CELL DISTRIBUTION WIDTH 14.1 % (11.5-14.5); WHITE BLOOD COUNT 6.1 K/uL (4.8-10.8)
[2018-07-23 13:09] LABS: ALB/GLOB RATIO 1.2 (1.0-2.1); ALBUMIN 4.1 g/dL (3.5-5.0); ALT/SGPT 21 U/L (9-52); AST/SGOT 41 U/L (14-36); BLOOD UREA NITROGEN 13 mg/dl (7-17); CALCIUM 8.8 mg/dL (8.4-10.2); GFR NON-AFRICAN AMERICAN > 60
[2018-07-23] MEDS ORDERED: Valproate 1,000 MG in Sodium Chloride 0.9% 100 ML IVPB STA (14:32)
[2018-07-23 15:12] LABS: SQUAMOUS EPITHIAL 9 /hpf (0-5); URINE BACTERIA RARE (<OCC); URINE BILIRUBIN NEGATIVE (NEGATIVE); URINE BLOOD NEGATIVE (NEGATIVE); URINE CLARITY SLIGHTY-CLOUDY (Clear); URINE COLOR YELLOW (YELLOW); URINE GLUCOSE (UA) NEG (NEGATIVE); URINE LEUKOCYTE ESTERASE NEG Leu/uL (Negative); URINE PROTEIN 100 mg/dL (NEGATIVE); URINE UROBILINOGEN 0.2-1.0 mg/dL (0.2-1.0)
[2018-07-23 15:25] LABS: OPIATES, UR NEGATIVE (NEGATIVE); PHENCYCLIDINE, UR NEGATIVE (NEGATIVE)
[2018-07-23 15:36] LABS: BARBITURATES, UR NEGATIVE (NEGATIVE); BENZODIAZEPINES, UR NEGATIVE (NEGATIVE)
[2018-07-23 17:43] VITALS: BP 139/93; PULSE 97; RESP 18; TEMP 97.8; O2SAT 98
--- NOTE | 2018-07-23 23:26 | CARD ---
APPROVED REPORT Date of service: 07/23/2018 EKG Measurement Heart [id number] CT [id number] <Conclusion> Normal sinus rhythm Normal Electrocardiogram
== END 2018-07-23 17:44 | disposition home or self-care (01) ==
LOC: H.ER 11:26
DX: G40.909 Epilepsy, unspecified, not intractable, without status epilepticus (principal); F32.9 Major depressive disorder, single episode, unspecified; Z86.59 Personal history of other mental and behavioral disorders; F43.10 Post-traumatic stress disorder, unspecified; Z79.899 Other long term (current) drug therapy